=== PATIENT | male | born 1995 | race Two or more races ===

== ENCOUNTER 2024-03-11 15:22 | Emergency (ER) | payer MEDICAID ==
[~2024-03-11] VITALS: Ht 167.6 cm; Wt 75.0 kg
[2024-03-11 15:35] VITALS: TEMP 98.1
[2024-03-11 18:40] LABS: INFLUENZA A-RTPCR,COMBO NEGATIVE (NEGATIVE); INFLUENZA B-RTPCR,COMBO NEGATIVE (NEGATIVE); RESPIRATORY SYNCYTIAL VRS-PCR NEGATIVE (NEGATIVE); SARS COVID19 RTPCR, COMBO NEGATIVE (NEGATIVE)
[2024-03-11] MEDS: ONDANSETRON HCL 4 MG TABLET PO ONE (19:00)
[2024-03-11] MEDS: GuaiFENesin/CODEINE [SUGAR-FREE] 200-20MG/10 ML LIQUID UDCUP PO ONE (19:08)
[2024-03-11] MEDS ORDERED: ONDA-104 PO (21:01)
[2024-03-11] MEDS ORDERED: GUAIF10 PO (21:01)
[2024-03-11] MEDS ORDERED: IBUP-1506 PO (21:01)
[2024-03-11 21:22] VITALS: BP 117/91; PULSE 120; RESP 16
== END 2024-03-11 21:26 | disposition home or self-care (01) ==
LOC: EMS 15:22
DX: J40 Bronchitis, not specified as acute or chronic (principal); J18.0 Bronchopneumonia, unspecified organism; Z20.822 Contact with and (suspected) exposure to COVID-19
CPT/HCPCS: 99284; 0241U; 71045; Q0162